=== PATIENT | female | born 1990 | race Caucasian/White ===

== ENCOUNTER 2021-07-29 12:08 | Inpatient (IN) | payer BC, SELFPAY ==
[2021-07-29] VITALS (44 sets, daily range): BP systolic 71–115; BP diastolic 34–65; PULSE 55–106; RESP 6–42; TEMP 36.9; O2SAT 93–100; BMI 11.2; BMI 25.0
[2021-07-29] MEDS: SODIUM CHLORIDE 0.9% 1,000 ML 1000 ML IV ×3 (12:38→16:26)
[2021-07-29] MEDS: ONDANSETRON 4 MG/2 ML INJ IV ×2 (12:38→14:23)
[2021-07-29 13:37] LABS: Ketones (Beta-Hydroxybutyrate) 4.49 mmol/L (<0.27)
[2021-07-29 13:38] LABS: BUN Creatinine Ratio 24.6 (6-22); Blood Urea Nitrogen 17 mg/dL (7-17); Calcium 9.2 mg/dL (8.4-10.2); Carbon Dioxide 16 mmol/L (22-32); Chloride 104 mmol/L (98-107); Estimated Glomerular Filt Rate > 60 mL/min (>60); Glucose 365 mg/dL (70-100); HEMOLYSIS < 15 (0-50); Potassium 4.6 mmol/L (3.4-5.1); Sodium 136 mmol/L (137-145)
[2021-07-29 14:06] LABS: Add Manual Diff / Slide Review NO; Basophils Absolute Auto 100 /uL (0-100); Basophils Percent Auto 0.8 % (0-2); Eosinophils Absolute Auto 0 /uL (0-450); Hematocrit 35.5 % (36-46); Hemoglobin 11.6 g/dL (12.0-16.0); Lymphocytes Absolute Auto 800 /uL (1100-4500); Lymphocytes Percent Auto 6.9 % (25-40); Mean Corpuscular HGB Conc 32.6 % (30-36); Mean Corpuscular Hemoglobin 27.9 PG (26-34); Mean Corpuscular Volume 85.5 fL (80-100); Monocytes Absolute Auto 300 /uL (0-900); Monocytes Percent Auto 2.5 % (3-14); Neutrophils Absolute Auto 10100 /uL (1500-7000); Neutrophils Percent Auto 89.8 % (50-75); Platelet Count 248 X10^3/uL (150-400); Red Blood Cell Count 4.15 X10^6/uL (4.0-5.2); Red Cell Distribution Width 13.9 % (11.6-14.8); White Blood Cell Count 11.3 X10^3/uL (4.5-11.0)
--- NOTE | 2021-07-29 14:22 | ED_ITS ---
HPI - General Adult General Chief complaint: Diabetic Problem Stated complaint: DIABETIC DKA Time Seen by Provider: 07/29/21 14:03 Source: patient Mode of arrival: Family Vehicle Limitations: no limitations History of Present Illness HPI narrative: Patient has type 1 diabetes. She uses insulin pump with sensor. She went biking for over 40 miles yesterday, she had no issues. She had a great time. She discovered her glucose sensor was not working. She dosed insulin to calories only. Today, Her ketones are high, probably related to exertion consistent with prior experiences with strenuous workouts. Today she developed nausea and vomiting. She has no diarrhea. She has significant abdominal cramping. She has no URI symptoms, no headache, no sore throat. She denies dysphagia. She has no chest discomfort she denies dyspnea. She has GI symptoms as noted above, she does not have chronic GI issues. She has urine output, no dysuria or hematuria. She has an IUD in place, menstrual cycles are regular. is unlikely. She has no extremity injuries, no cramping. Related Data Allergies Allergy/AdvReac Type Severity Reaction Status Date / Time amoxicillin Allergy ITCHING Verified 07/29/21 12:32 Review of Systems Constitutional Constitutional: Reports as per HPI, Reports body ache(s), Denies chills, Denies fever(s) and Denies headache(s) Eyes Eyes: Denies change in vision ENT Ears, Nose, Mouth, and Throat: Denies vertigo, Denies dizziness, Denies facial pain, Denies headache(s), Denies sinus pain, Denies sinus pressure and Denies sore throat Cardiovascular Cardiovascular: Denies chest pain, Denies syncope, Denies pedal edema, Denies palpitations and Denies dyspnea Respiratory Respiratory: Denies chest congestion, Denies cough and Denies dyspnea Gastrointestinal Gastrointestinal: Reports as per HPI Genitourinary Genitourinary: Reports as per HPI Musculoskeletal Musculoskeletal: Denies back pain, Reports myalgias and Denies numbness Integumentary/Breasts Skin/Breast: Denies rash and Denies skin pain Neurologic Neurologic: Denies vertigo, Denies dizziness, Denies syncope, Denies headache(s) and Denies numbness Psychiatric Psychiatric: Denies anxiety Endocrine Endocrine: Denies palpitations Hematologic/Lymphatic On Anticoagulants: No Patient History Medical History (Updated 07/29/21 @ 20:21 by Paramjit Mayen MD) DM type 1 (diabetes mellitus, type 1) Surgical History (Updated 07/29/21 @ 20:14 by Paramjit Mayen MD) No significant past surgical history Social History Smoking Status: Never smoker Smoking Status: Never smoker alcohol intake frequency: 0-2 drinks per day Substance Use Type: marijuana Exam Initial Vital Signs Initial Vital Signs: Vital Signs Pulse Rate 89 07/29/21 12:16 Blood Pressure 115/57 L 07/29/21 12:16 Pulse Oximetry 96 07/29/21 12:16 Const General: cooperative, healthy appearing, well developed and well groomed HENMT Head: normal to inspection, normocephalic and atraumatic Mouth: oropharynx normal and other (Dry oral mucosa.) Throat: posterior oropharynx normal Eyes General: Yes appearance normal, both eyes and all related structures Sclera: sclerae normal Pupils: PERRL EOM: EOM intact bilaterally Neck Neck: normal visual inspection, full ROM and No JVD Resp Auscultation: clear to auscultation bilaterally Cardio Rate: regular rate Rhythm: regular rhythm Heart Sounds: S1 normal, S2 normal, no gallops, no murmurs and no rubs GI Inspection: normal to inspection Palpation: soft and No tender Percussion: normal to percussion Auscultation: normal bowel sounds Back/Spine/Pelvis Back: No CVA tenderness Thoracic/Lumbar Spine: thoracic and lumbar spine normal to inspection Skin General: no rashes or lesions noted Neuro General: patient alert, patient awake, patient oriented x3 and no focal motor deficits Extrem General: normal to inspection, full ROM, no pedal edema and no calf tenderness Psych Mental Status: mental status grossly normal Course Course Course Narrative: Patient is normal blood pressure is 110-120. She presents with extended nausea vomiting. Initial blood pressure was 90s, she feels fatigued. She has been aggressively IV hydrated. Her glucose is were never dramatically high, and 300 range. Now however she has ketones and low CO2, suggesting DKA. VBG showed pH 7.245. After her initial glucose, the patient made an is some adjustment but to little effect. Labs repeated, it basically unchanged. She has now been hydrated over 2 L of normal saline, lab still consistent with DKA. Hospitalist, Dr. Rubin was consulted. The patient will be started on insulin drip, DKA protocol is initiated. The patient will DC monitoring and use of her insulin pump. Orders Ordered: ED Orders 07/29/21 12:25 CBC Auto Diff [Complete Blood Count AUTO DIFF] Stat Comprehensive Metabolic Panel Stat Ketones (Beta-Hydroxybutyrate) Stat Magnesium Stat Phosphorous Stat 07/29/21 13:49 Test Urine Stat 07/29/21 14:17 VBG [Venous Blood Gas] Stat 07/29/21 16:33 COVID19 -Nasal RAPID/Pre-Proc Stat Sodium Chloride (Normal Saline 0.9%) 1,000 mls @ 1,000 mls/hr IV BOLUS PRN PRN Reason: Fluid replacement Last Infusion: 07/29/21 18:22 Dose: 0 mls/hr Documented By: Admin: 07/29/21 16:26 Dose: 1,000 mls/hr Documented By: PATRICIA INSULIN DRIP PREMIX (Myxredlin Drip Premix) 100 unit in 100 mls @ 6 mls/hr IV TITRATE BETTY; Protocol Last Admin: 07/29/21 19:32 Dose: 6 mls/hr, 6 mls/hr Documented By: PATRICIA Co-signed By: JU Discontinued Medications Sodium Chloride (Normal Saline 0.9%) 1,000 mls @ 1,000 mls/hr IV BOLUS ONE Stop: 07/29/21 13:29 Last Infusion: 07/29/21 14:08 Dose: 0 mls/hr Documented By: Admin: 07/29/21 12:38 Dose: 1,000 mls/hr Documented By: JU Sodium Chloride (Normal Saline 0.9%) 1,000 mls @ 1,000 mls/hr IV BOLUS ONE Stop: 07/29/21 15:19 Last Infusion: 07/29/21 15:35 Dose: 0 mls/hr Documented By: Admin: 07/29/21 14:22 Dose: 1,000 mls/hr Documented By: JU Metoclopramide HCl (Metoclopramide 10 Mg/2 Ml Inj) 10 mg IV NOW ONE Stop: 07/29/21 16:15 Last Admin: 07/29/21 16:26 Dose: 10 mg Documented By: PATRICIA Ondansetron HCl (Ondansetron 4 Mg/2 Ml Inj) 4 mg IV NOW ONE Stop: 07/29/21 12:31 Last Admin: 07/29/21 12:38 Dose: 4 mg Documented By: JU Ondansetron HCl (Ondansetron 4 Mg/2 Ml Inj) 4 mg IV NOW ONE Stop: 07/29/21 14:21 Last Admin: 07/29/21 14:23 Dose: 4 mg Documented By: JU Ondansetron HCl (Ondansetron 4 Mg/2 Ml Inj) 4 mg IV NOW ONE Stop: 07/29/21 14:27 Last Admin: 07/29/21 14:31 Dose: Not Given Documented By: JU Vital Signs Vital signs: Vital Signs - 8 hr 07/29/21 12:16 07/29/21 12:16 07/29/21 12:30 Temperature Pulse Rate 89 Respiratory Rate Blood Pressure 115/57 L 104/57 L Pulse Oximetry 96 Oxygen Delivery Method 07/29/21 12:30 07/29/21 13:00 07/29/21 13:00 Temperature Pulse Rate 90 85 Respiratory Rate Blood Pressure 97/52 L Pulse Oximetry 98 100 Oxygen Delivery Method 07/29/21 12:20 07/29/21 13:30 07/29/21 13:37 Temperature 98.4 F Pulse Rate 88 94 H 93 H Respiratory Rate 19 Blood Pressure 115/57 L Pulse Oximetry 96 100 100 Oxygen Delivery Method Room Air 07/29/21 13:37 07/29/21 13:39 07/29/21 13:41 Temperature Pulse Rate Respiratory Rate Blood Pressure 96/46 L 105/53 L Pulse Oximetry 99 Oxygen Delivery Method 07/29/21 13:49 07/29/21 13:49 07/29/21 14:00 Temperature Pulse Rate 55 L Respiratory Rate Blood Pressure 106/54 L 94/48 L Pulse Oximetry Oxygen Delivery Method 07/29/21 14:00 07/29/21 14:30 07/29/21 14:30 Temperature Pulse Rate 90 89 Respiratory Rate Blood Pressure 101/53 L Pulse Oximetry 100 99 Oxygen Delivery Method 07/29/21 15:00 07/29/21 15:00 07/29/21 15:30 Temperature Pulse Rate 97 H Respiratory Rate Blood Pressure 95/53 L 88/48 L Pulse Oximetry 99 Oxygen Delivery Method 07/29/21 15:30 07/29/21 15:38 07/29/21 15:38 Temperature Pulse Rate 97 H 94 H Respiratory Rate Blood Pressure 80/39 L Pulse Oximetry 99 99 Oxygen Delivery Method 07/29/21 15:41 07/29/21 15:41 07/29/21 15:44 Temperature Pulse Rate 96 H 95 H Respiratory Rate Blood Pressure 73/36 L Pulse Oximetry 100 99 Oxygen Delivery Method 07/29/21 15:44 07/29/21 16:10 07/29/21 16:11 Temperature Pulse Rate 98 H Respiratory Rate Blood Pressure 90/46 L 82/44 L Pulse Oximetry 97 Oxygen Delivery Method 07/29/21 16:11 07/29/21 16:15 07/29/21 16:15 Temperature Pulse Rate 99 H 96 H Respiratory Rate Blood Pressure 96/48 L Pulse Oximetry 98 100 Oxygen Delivery Method 07/29/21 16:20 07/29/21 16:20 07/29/21 16:30 Temperature Pulse Rate 96 H Respiratory Rate 29 H Blood Pressure 99/48 L 83/39 L Pulse Oximetry 100 Oxygen Delivery Method 07/29/21 16:30 07/29/21 16:40 07/29/21 16:40 Temperature Pulse Rate 99 H 97 H Respiratory Rate 23 21 Blood Pressure 73/35 L Pulse Oximetry 100 100 Oxygen Delivery Method 07/29/21 16:50 07/29/21 16:50 07/29/21 17:00 Temperature Pulse Rate 97 H Respiratory Rate 26 H Blood Pressure 88/45 L 74/36 L Pulse Oximetry 100 Oxygen Delivery Method 07/29/21 17:00 Temperature Pulse Rate 95 H Respiratory Rate 22 Blood Pressure Pulse Oximetry 100 Oxygen Delivery Method Medical Decision Making Lab Data Result diagrams: 07/29/21 12:25 07/29/21 12:25 Labs: Lab Results 07/29/21 07/29/21 07/29/21 Range/Units 12:25 12:25 12:25 WBC 11.3 H (4.5-11.0) X10^3/uL RBC 4.15 (4.0-5.2) X10^6/uL Hgb 11.6 L (12.0-16.0) g/dL Hct 35.5 L (36-46) % MCV 85.5 (80-100) fL MCH 27.9 (26-34) PG MCHC 32.6 (30-36) % RDW 13.9 (11.6-14.8) % Plt Count 248 (150-400) X10^3/uL Neut % (Auto) 89.8 H (50-75) % Lymph % (Auto) 6.9 L (25-40) % [place] % (Auto) 2.5 L (3-14) % Eos % (Auto) 0.0 L (2-4) % Baso % (Auto) 0.8 (0-2) % Neut # (Auto) 11980 H (3250-9344) /uL Lymph # (Auto) 800 L (1560-6697) /uL [place] # (Auto) 300 (0-900) /uL Eos # (Auto) 0 (0-450) /uL Baso # (Auto) 100 (0-100) /uL VBG pH (7.33-7.43) VBG pCO2 (45-50) mmHg VBG pO2 (35-45) mmHg VBG HCO3 (23-28) mmol/L VBG Total CO2 (24-29) mmol/L VBG O2 Saturation (70-75) % VBG Base Excess (0-4) mmol/L Sodium 136 L (137-145) mmol/L Potassium 4.6 (3.4-5.1) mmol/L Chloride 104 (98-107) mmol/L Carbon Dioxide 16 L (22-32) mmol/L BUN 17 (7-17) mg/dL Creatinine 0.69 (0.52-1.04) mg/dL Estimated GFR > 60 (>60) mL/min BUN/Creatinine Ratio 24.6 H (6-22) Glucose 365 H (70-100) mg/dL Calcium 9.2 (8.4-10.2) mg/dL Phosphorus (2.5-4.5) mg/dL Magnesium (1.6-2.3) mg/dL Total Bilirubin 1.1 (0.2-1.3) mg/dL AST 44 H (14-36) IU/L ALT 25 (<35) IU/L Alkaline Phosphatase 120 (38-126) U/L Total Protein 7.5 (6.3-8.2) g/dL Albumin 4.6 (3.5-5.0) g/dL Globulin 2.9 (1.7-4.1) g/dL Albumin/Globulin Ratio 1.6 (1.0-2.8) Urine Test (Negative) Ketones 4.49 H (<0.27) mmol/L SARS-CoV-2 (PCR) (Negative) 07/29/21 07/29/21 07/29/21 Range/Units 12:25 13:49 14:17 WBC (4.5-11.0) X10^3/uL RBC (4.0-5.2) X10^6/uL Hgb (12.0-16.0) g/dL Hct (36-46) % MCV (80-100) fL MCH (26-34) PG MCHC (30-36) % RDW (11.6-14.8) % Plt Count (150-400) X10^3/uL Neut % (Auto) (50-75) % Lymph % (Auto) (25-40) % [place] % (Auto) (3-14) % Eos % (Auto) (2-4) % Baso % (Auto) (0-2) % Neut # (Auto) (3840-5224) /uL Lymph # (Auto) (2103-1304) /uL [place] # (Auto) (0-900) /uL Eos # (Auto) (0-450) /uL Baso # (Auto) (0-100) /uL VBG pH 7.25 L (7.33-7.43) VBG pCO2 41.3 L (45-50) mmHg VBG pO2 30 L (35-45) mmHg VBG HCO3 18 L (23-28) mmol/L VBG Total CO2 19 L (24-29) mmol/L VBG O2 Saturation 48 L (70-75) % VBG Base Excess -9.0 L (0-4) mmol/L Sodium (137-145) mmol/L Potassium (3.4-5.1) mmol/L Chloride (98-107) mmol/L Carbon Dioxide (22-32) mmol/L BUN (7-17) mg/dL Creatinine (0.52-1.04) mg/dL Estimated GFR (>60) mL/min BUN/Creatinine Ratio (6-22) Glucose (70-100) mg/dL Calcium (8.4-10.2) mg/dL Phosphorus 3.7 (2.5-4.5) mg/dL Magnesium 1.6 (1.6-2.3) mg/dL Total Bilirubin (0.2-1.3) mg/dL AST (14-36) IU/L ALT (<35) IU/L Alkaline Phosphatase (38-126) U/L Total Protein (6.3-8.2) g/dL Albumin (3.5-5.0) g/dL Globulin (1.7-4.1) g/dL Albumin/Globulin Ratio (1.0-2.8) Urine Test Negative (Negative) Ketones (<0.27) mmol/L SARS-CoV-2 (PCR) (Negative) 07/29/21 Range/Units 16:33 WBC (4.5-11.0) X10^3/uL RBC (4.0-5.2) X10^6/uL Hgb (12.0-16.0) g/dL Hct (36-46) % MCV (80-100) fL MCH (26-34) PG MCHC (30-36) % RDW (11.6-14.8) % Plt Count (150-400) X10^3/uL Neut % (Auto) (50-75) % Lymph % (Auto) (25-40) % [place] % (Auto) (3-14) % Eos % (Auto) (2-4) % Baso % (Auto) (0-2) % Neut # (Auto) (0875-9145) /uL Lymph # (Auto) (2798-5856) /uL [place] # (Auto) (0-900) /uL Eos # (Auto) (0-450) /uL Baso # (Auto) (0-100) /uL VBG pH (7.33-7.43) VBG pCO2 (45-50) mmHg VBG pO2 (35-45) mmHg VBG HCO3 (23-28) mmol/L VBG Total CO2 (24-29) mmol/L VBG O2 Saturation (70-75) % VBG Base Excess (0-4) mmol/L Sodium (137-145) mmol/L Potassium (3.4-5.1) mmol/L Chloride (98-107) mmol/L Carbon Dioxide (22-32) mmol/L BUN (7-17) mg/dL Creatinine (0.52-1.04) mg/dL Estimated GFR (>60) mL/min BUN/Creatinine Ratio (6-22) Glucose (70-100) mg/dL Calcium (8.4-10.2) mg/dL Phosphorus (2.5-4.5) mg/dL Magnesium (1.6-2.3) mg/dL Total Bilirubin (0.2-1.3) mg/dL AST (14-36) IU/L ALT (<35) IU/L Alkaline Phosphatase (38-126) U/L Total Protein (6.3-8.2) g/dL Albumin (3.5-5.0) g/dL Globulin (1.7-4.1) g/dL Albumin/Globulin Ratio (1.0-2.8) Urine Test (Negative) Ketones (<0.27) mmol/L SARS-CoV-2 (PCR) Negative (Negative) Point of Care Testing Glucose POC 323 Urine Dip Bedside Urine Glucose 1000 mg/dl Bedside Urine Bilirubin - Negative Bedside Urine Ketone +++ 80 Urine Specific [place] 1.025 Bedside Urine Occult Blood - Negative Bedside Urine pH 6.0 Bedside Urine Protein - Negative Bedside Urine Urobilinogen - Negative Bedside Urine Nitrite - Negative Bedside Urine Leukocytes - Negative Esterase Point of care testing: Point of Care Testing Glucose POC 323 Urine Dip Bedside Urine Glucose 1000 mg/dl Bedside Urine Bilirubin - Negative Bedside Urine Ketone +++ 80 Urine Specific [place] 1.025 Bedside Urine Occult Blood - Negative Bedside Urine pH 6.0 Bedside Urine Protein - Negative Bedside Urine Urobilinogen - Negative Bedside Urine Nitrite - Negative Bedside Urine Leukocytes - Negative Esterase Critical Care Time Critical Care Time Critical Care Time: Yes Total Critical Care Time: 40 Attestation: Time included initial patient assessment, as well as multiple reassessments. Patient was informed of the situation repeatedly. Care included consultation with the admitting physician. Discharge Plan Departure Patient Disposition: Admitted As Inpatient Clinical Impression: DKA (diabetic ketoacidosis), DM type 1 (diabetes mellitus, type 1) Admit Date/Time: 07/29/21 17:09 Admit Provider: Lew Rubin
[2021-07-29 14:39] LABS: HCO3 VBG 18 mmol/L (23-28); Oxygen Saturation VBG 48 % (70-75); PCO2 VBG 41.3 mmHg (45-50); PO2 VBG 30 mmHg (35-45); Total CO2 VBG 19 mmol/L (24-29)
[2021-07-29 14:40] LABS: pH VBG 7.25 (7.33-7.43)
[2021-07-29 15:19] LABS: Alanine Aminotransferase 25 IU/L (<35); Albumin 4.6 g/dL (3.5-5.0); Albumin Globulin Ratio 1.6 (1.0-2.8); Alkaline Phosphatase 120 U/L (38-126); Aspartate Aminotransferase 44 IU/L (14-36); Bilirubin Total 1.1 mg/dL (0.2-1.3); Globulin 2.9 g/dL (1.7-4.1); Magnesium 1.6 mg/dL (1.6-2.3); Phosphorous 3.7 mg/dL (2.5-4.5); Total Protein 7.5 g/dL (6.3-8.2)
[2021-07-29] MEDS: METOCLOPRAMIDE 10 MG/2 ML INJ IV (16:26)
[2021-07-29 16:36] LABS: Pregnancy Test Urine Negative (Negative)
[2021-07-29 17:18] LABS: COVID19 -Nasal RAPID Negative (Negative)
[2021-07-29] MEDS: INSULIN DRIP PREMIX 100 UNIT/100 ML PLAST..BAG 6 UNIT IV (19:32)
--- NOTE | 2021-07-29 20:21 | P.TELICUCN_ITS ---
History of Present Illness Consult details Chief complaint: DIABETIC DKA Narrative: Patient is a 31 year old female with history of DM on insulin pump who presents with N/V. Patient went out biking yesterday and noticed her insulin pump to be malfunction which she started dosing her insulin based on calorie counts. Today she developed abdominal pain and N/V. Associated lethargy, polyuria, and polydipsia. No reported fever/chills, chest pain, diarrhea, or dysuria. In ER, labs notable for glucose 360, Co2 16 and AG 16. She was resuscitated with 3 liters of crystalloids and started on insulin infusion. Admitted to ICU for DKA management. [facility] Medical History (Updated 07/29/21 @ 20:21 by Paramjit Mayen MD) DM type 1 (diabetes mellitus, type 1) Surgical History (Updated 07/29/21 @ 20:14 by Paramjit Mayen MD) No significant past surgical history Social History Smoking Status: Never smoker Current Medications Current Medications Medications: Visit Medications (administered) Generic Name Dose Route Start Last Admin Trade Name Freq PRN Reason Stop Dose Admin Sodium Chloride 1,000 mls @ 1,000 mls/hr 07/29/21 16:13 07/29/21 18:22 Normal Saline 0.9% IV Infused BOLUS PRN Infusion Fluid replacement INSULIN DRIP PREMIX 100 unit in 100 mls @ 6 mls/hr 07/29/21 19:00 07/29/21 19:32 Myxredlin Drip Premix IV 6 mls/hr TITRATE BETTY 6 mls/hr Administration Protocol Exam Vital Signs (past 8 hours): - 07/29/21 12:30 07/29/21 12:30 07/29/21 13:00 Pulse Rate 90 Respiratory Rate Blood Pressure 104/57 L 97/52 L Pulse Oximetry 98 07/29/21 13:00 07/29/21 13:30 07/29/21 13:37 Pulse Rate 85 94 H 93 H Respiratory Rate Blood Pressure Pulse Oximetry 100 100 100 07/29/21 13:37 07/29/21 13:39 07/29/21 13:41 Pulse Rate Respiratory Rate Blood Pressure 96/46 L 105/53 L Pulse Oximetry 99 07/29/21 13:49 07/29/21 13:49 07/29/21 14:00 Pulse Rate 55 L Respiratory Rate Blood Pressure 106/54 L 94/48 L Pulse Oximetry 07/29/21 14:00 07/29/21 14:30 07/29/21 14:30 Pulse Rate 90 89 Respiratory Rate Blood Pressure 101/53 L Pulse Oximetry 100 99 07/29/21 15:00 07/29/21 15:00 07/29/21 15:30 Pulse Rate 97 H Respiratory Rate Blood Pressure 95/53 L 88/48 L Pulse Oximetry 99 07/29/21 15:30 07/29/21 15:38 07/29/21 15:38 Pulse Rate 97 H 94 H Respiratory Rate Blood Pressure 80/39 L Pulse Oximetry 99 99 07/29/21 15:41 07/29/21 15:41 07/29/21 15:44 Pulse Rate 96 H 95 H Respiratory Rate Blood Pressure 73/36 L Pulse Oximetry 100 99 07/29/21 15:44 07/29/21 16:10 07/29/21 16:11 Pulse Rate 98 H Respiratory Rate Blood Pressure 90/46 L 82/44 L Pulse Oximetry 97 07/29/21 16:11 07/29/21 16:15 07/29/21 16:15 Pulse Rate 99 H 96 H Respiratory Rate Blood Pressure 96/48 L Pulse Oximetry 98 100 07/29/21 16:20 07/29/21 16:20 07/29/21 16:30 Pulse Rate 96 H Respiratory Rate 29 H Blood Pressure 99/48 L 83/39 L Pulse Oximetry 100 07/29/21 16:30 07/29/21 16:40 07/29/21 16:40 Pulse Rate 99 H 97 H Respiratory Rate 23 21 Blood Pressure 73/35 L Pulse Oximetry 100 100 07/29/21 16:50 07/29/21 16:50 07/29/21 17:00 Pulse Rate 97 H Respiratory Rate 26 H Blood Pressure 88/45 L 74/36 L Pulse Oximetry 100 07/29/21 17:00 07/29/21 17:10 07/29/21 17:10 Pulse Rate 95 H 97 H Respiratory Rate 22 28 H Blood Pressure 84/46 L Pulse Oximetry 100 100 07/29/21 17:20 07/29/21 17:20 07/29/21 17:30 Pulse Rate 104 H 96 H Respiratory Rate 30 H 22 Blood Pressure 96/54 L Pulse Oximetry 98 100 07/29/21 17:31 07/29/21 17:31 07/29/21 17:40 Pulse Rate 94 H 97 H Respiratory Rate 23 25 H Blood Pressure 79/37 L Pulse Oximetry 100 100 07/29/21 17:40 07/29/21 17:50 07/29/21 17:50 Pulse Rate 101 H Respiratory Rate Blood Pressure 71/34 L 91/44 L Pulse Oximetry 100 07/29/21 18:00 07/29/21 18:00 07/29/21 18:10 Pulse Rate 101 H Respiratory Rate Blood Pressure 93/44 L 90/45 L Pulse Oximetry 93 07/29/21 18:10 07/29/21 18:20 07/29/21 18:20 Pulse Rate 103 H 100 H Respiratory Rate 6 L 42 H Blood Pressure 77/41 L Pulse Oximetry 100 100 07/29/21 18:38 07/29/21 18:41 07/29/21 18:41 Pulse Rate 100 H 99 H Respiratory Rate Blood Pressure 95/44 L Pulse Oximetry 98 100 07/29/21 18:50 07/29/21 18:50 07/29/21 19:00 Pulse Rate 97 H Respiratory Rate 24 Blood Pressure 81/36 L 77/35 L Pulse Oximetry 100 07/29/21 19:00 07/29/21 19:10 07/29/21 19:10 Pulse Rate 98 H 100 H Respiratory Rate 25 H Blood Pressure 92/43 L Pulse Oximetry 100 100 07/29/21 19:20 07/29/21 19:20 Pulse Rate 100 H Respiratory Rate Blood Pressure 90/42 L Pulse Oximetry 100 Oxygen Delivery Method Room Air Objective Labs Result Diagrams: 07/29/21 12:25 07/29/21 12:25 Labs: Laboratory Results - last 24 hr 07/29/21 07/29/21 07/29/21 12:25 12:25 12:25 WBC 11.3 H RBC 4.15 Hgb 11.6 L Hct 35.5 L MCV 85.5 MCH 27.9 MCHC 32.6 RDW 13.9 Plt Count 248 Neut % (Auto) 89.8 H Lymph % (Auto) 6.[address] [place] % (Auto) 2.5 L Eos % (Auto) 0.0 L Baso % (Auto) 0.8 Neut # (Auto) 61770 H Lymph # (Auto) [address] [place] # (Auto) 300 Eos # (Auto) 0 Baso # (Auto) 100 VBG pH VBG pCO2 VBG pO2 VBG HCO3 VBG Total CO2 VBG O2 Saturation VBG Base Excess Sodium 136 L Potassium 4.6 Chloride 104 Carbon Dioxide 16 L BUN 17 Creatinine 0.69 Estimated GFR > 60 BUN/Creatinine Ratio 24.6 H Glucose 365 H Calcium 9.2 Phosphorus Magnesium Total Bilirubin 1.1 AST 44 H ALT 25 Alkaline Phosphatase 120 Total Protein 7.5 Albumin 4.6 Globulin 2.9 Albumin/Globulin Ratio 1.6 Urine Test Ketones 4.49 H SARS-CoV-2 (PCR) 07/29/21 07/29/21 07/29/21 12:25 13:49 14:17 WBC RBC Hgb Hct MCV MCH MCHC RDW Plt Count Neut % (Auto) Lymph % (Auto) [place] % (Auto) Eos % (Auto) Baso % (Auto) Neut # (Auto) Lymph # (Auto) [place] # (Auto) Eos # (Auto) Baso # (Auto) VBG pH 7.25 L VBG pCO2 41.3 L VBG pO2 30 L VBG HCO3 18 L VBG Total CO2 19 L VBG O2 Saturation 48 L VBG Base Excess -9.0 L Sodium Potassium Chloride Carbon Dioxide BUN Creatinine Estimated GFR BUN/Creatinine Ratio Glucose Calcium Phosphorus 3.7 Magnesium 1.6 Total Bilirubin AST ALT Alkaline Phosphatase Total Protein Albumin Globulin Albumin/Globulin Ratio Urine Test Negative Ketones SARS-CoV-2 (PCR) 07/29/21 16:33 WBC RBC Hgb Hct MCV MCH MCHC RDW Plt Count Neut % (Auto) Lymph % (Auto) [place] % (Auto) Eos % (Auto) Baso % (Auto) Neut # (Auto) Lymph # (Auto) [place] # (Auto) Eos # (Auto) Baso # (Auto) VBG pH VBG pCO2 VBG pO2 VBG HCO3 VBG Total CO2 VBG O2 Saturation VBG Base Excess Sodium Potassium Chloride Carbon Dioxide BUN Creatinine Estimated GFR BUN/Creatinine Ratio Glucose Calcium Phosphorus Magnesium Total Bilirubin AST ALT Alkaline Phosphatase Total Protein Albumin Globulin Albumin/Globulin Ratio Urine Test Ketones SARS-CoV-2 (PCR) Negative Assessment & Plan Assessment & Plan narrative: # DKA -- Secondary to malfunction insulin pump -- ICU admission, cardiac monitoring -- Optimize intravascular volume with IVF bolus -- Cont DKA protocol with insulin drip -- Check lipase -- Every hour Accu-Cheks, every 4 hour BMP, mag, phos -- Goal Magnesium >2, Phosphorus> 3, K>4 -- Will transition to sliding scale insulin when anion gap <12, CO2 > 17 # SIRS -- Secondary to DKA -- DKA rx as above # Sinus tachycardia -- Cont aggressive crystalloid resuscitation -- Monitor on telmetry -- High lytes goal # Hypotension -- Secondary to dehydration -- Cont IVF per DKA protocol -- MAP goal > 65 D/w RN and patient at bedside. Time Spent With Patient Critical Care time: I spent a total of [] minutes of critical care time on this patient's care today; this time is exclusive of procedural time.
--- NOTE | 2021-07-29 20:24 | PC.NURSE ---
insulin drip paused for transfer to ICU. report given on 6ml/hr total of 2ml given so far
[2021-07-29] MEDS: LACTATED RINGERS 1,000 ML 150 ML IV (20:59)
[2021-07-29 21:37] LABS: BUN Creatinine Ratio 25.8 (6-22); Blood Urea Nitrogen 25 mg/dL (7-17); Chloride 111 mmol/L (98-107); Estimated Glomerular Filt Rate > 60 mL/min (>60); Glucose 345 mg/dL (70-100); HEMOLYSIS < 15 (0-50); Potassium 4.7 mmol/L (3.4-5.1); Sodium 136 mmol/L (137-145)
[2021-07-29 21:51] LABS: Carbon Dioxide 7 mmol/L (22-32)
--- NOTE | 2021-07-29 22:14 | P.HP_ITS ---
History of Present Illness History of Present Illness Date Patient Seen: 07/29/21 Time Patient Seen: 21:45 Chief complaint: DIABETIC DKA Narrative: Elda Camara is a 31 y.o. female with diabetes type 1 using an insulin pump and was in her usual state of health when she changed out her pump cassette. She and her fiance were bicyling around [place] and after a 40-mile ride, she noticed her pump was not registering. She ascertained that the sensor was not working and started to administer her own insulin based on carb counts. She and her fiance were able to get [employer] lot laborer to drive them to the very terminal and they presented to the emergency department sometime today. Upon presentation to the ED her glucose was 365 and she had an anion gap of 16 and she was started on an insulin drip. She endorsed having nausea and vomiting, now very thirsty, denies headache, dizziness, difficulty swallowing, shortness of breath, chest pain, abdominal pain, dysuria, diarrhea or constipation, or upper or lower extremity neuropathy. She is afebrile, blood pressure 96/50, heart rate 102, respiratory rate 23, oxygen saturation of 99% on room air, she weighs 74.5 kg with a BMI of 25. WBC is mildly elevated at 11.3, her hemoglobin and hematocrit is 11.6 and 35.5 respectively, VBG pH 7.25, VBG pCO2 is 41.3, VBG PO2 is 30, VBG bicarb is 18, VBG total bicarb is 19, sodium 136, potassium 4.7 serum chloride 111 currently bicarb is 7 BUN 25 glucose 345 calcium 8.0 AST is 44, hemoglobin A1c is pending, urine is negative for , MRSA screen is negative ketones are present in her urine and COVID-19 PCR is negative. Patient History Medical History (Updated 07/29/21 @ 23:07 by KLEBER Prater) Anxiety DM type 1 (diabetes mellitus, type 1) Surgical History (Updated 07/29/21 @ 20:14 by Paramjit Mayen MD) No significant past surgical history Family & Social History Family History (Updated 07/30/21 @ 01:12 by KLEBER Prater) Father Pancreatic cancer Mother Glioblastoma Sister Celiac disease Safety & Behavioral: Feels Safe in Current Yes Environment Been Physically Hurt or No Threatened By a Person Tobacco & Substance use: Smoking Status Never smoker alcohol intake frequency 0-2 drinks per day Substance Use Type marijuana Meds Home Medications and Allergies Allergies Allergy/AdvReac Type Severity Reaction Status Date / Time amoxicillin Allergy ITCHING Verified 07/29/21 12:32 Exam Vital Signs (past 8 hours): - 07/29/21 14:30 07/29/21 14:30 07/29/21 15:00 Pulse Rate 89 Respiratory Rate Blood Pressure 101/53 L 95/53 L Pulse Oximetry 99 07/29/21 15:00 07/29/21 15:30 07/29/21 15:30 Pulse Rate 97 H 97 H Respiratory Rate Blood Pressure 88/48 L Pulse Oximetry 99 99 07/29/21 15:38 07/29/21 15:38 07/29/21 15:41 Pulse Rate 94 H 96 H Respiratory Rate Blood Pressure 80/39 L Pulse Oximetry 99 100 07/29/21 15:41 07/29/21 15:44 07/29/21 15:44 Pulse Rate 95 H Respiratory Rate Blood Pressure 73/36 L 90/46 L Pulse Oximetry 99 07/29/21 16:10 07/29/21 16:11 07/29/21 16:11 Pulse Rate 98 H 99 H Respiratory Rate Blood Pressure 82/44 L Pulse Oximetry 97 98 07/29/21 16:15 07/29/21 16:15 07/29/21 16:20 Pulse Rate 96 H Respiratory Rate Blood Pressure 96/48 L 99/48 L Pulse Oximetry 100 07/29/21 16:20 07/29/21 16:30 07/29/21 16:30 Pulse Rate 96 H 99 H Respiratory Rate 29 H 23 Blood Pressure 83/39 L Pulse Oximetry 100 100 07/29/21 16:40 07/29/21 16:40 07/29/21 16:50 Pulse Rate 97 H 97 H Respiratory Rate 21 26 H Blood Pressure 73/35 L Pulse Oximetry 100 100 07/29/21 16:50 07/29/21 17:00 07/29/21 17:00 Pulse Rate 95 H Respiratory Rate 22 Blood Pressure 88/45 L 74/36 L Pulse Oximetry 100 07/29/21 17:10 07/29/21 17:10 07/29/21 17:20 Pulse Rate 97 H 104 H Respiratory Rate 28 H 30 H Blood Pressure 84/46 L Pulse Oximetry 100 98 07/29/21 17:20 07/29/21 17:30 07/29/21 17:31 Pulse Rate 96 H Respiratory Rate 22 Blood Pressure 96/54 L 79/37 L Pulse Oximetry 100 07/29/21 17:31 07/29/21 17:40 07/29/21 17:40 Pulse Rate 94 H 97 H Respiratory Rate 23 25 H Blood Pressure 71/34 L Pulse Oximetry 100 100 07/29/21 17:50 07/29/21 17:50 07/29/21 18:00 Pulse Rate 101 H Respiratory Rate Blood Pressure 91/44 L 93/44 L Pulse Oximetry 100 07/29/21 18:00 07/29/21 18:10 07/29/21 18:10 Pulse Rate 101 H 103 H Respiratory Rate 6 L Blood Pressure 90/45 L Pulse Oximetry 93 100 07/29/21 18:20 07/29/21 18:20 07/29/21 18:38 Pulse Rate 100 H 100 H Respiratory Rate 42 H Blood Pressure 77/41 L Pulse Oximetry 100 98 07/29/21 18:41 07/29/21 18:41 07/29/21 18:50 Pulse Rate 99 H 97 H Respiratory Rate 24 Blood Pressure 95/44 L Pulse Oximetry 100 100 07/29/21 18:50 07/29/21 19:00 07/29/21 19:00 Pulse Rate 98 H Respiratory Rate 25 H Blood Pressure 81/36 L 77/35 L Pulse Oximetry 100 07/29/21 19:10 07/29/21 19:10 07/29/21 19:20 Pulse Rate 100 H 100 H Respiratory Rate Blood Pressure 92/43 L Pulse Oximetry 100 100 07/29/21 19:20 07/29/21 20:30 07/29/21 21:00 Pulse Rate 103 H Respiratory Rate 23 Blood Pressure 90/42 L 92/52 L Pulse Oximetry 100 07/29/21 21:00 07/29/21 22:00 07/29/21 22:00 Pulse Rate 106 H 106 H Respiratory Rate 28 H 29 H Blood Pressure 98/65 Pulse Oximetry 99 Oxygen Delivery Method Room Air Narrative Exam Narrative: Gen: Alert, oriented, well-developed 31 y.o. female, NAD HEENT: normocephalic, atraumatic, conjunctiva clear, sclera non-icteric, oral mucosa pink and moist Neck: supple, full ROM, no JVD, trachea is midline Resp: Lungs CTA, non-labored breathing CV: RRR, no murmur or rubs Abd: soft, non-tender, normoactive BTs Skin: no lesions or rashes, dry and intact Neuro: Alert and oriented X 4 w/no focal deficits. Speech clear and coherent. Extremities: moves all 4 extremities, is ambulatory, negative Latasha?s sign Psyche: normal mood and affect. Objective Labs Result Diagrams: 07/29/21 12:25 07/29/21 21:00 Labs: Laboratory Results - last 24 hr 07/29/21 07/29/21 07/29/21 12:25 12:25 12:25 WBC 11.3 H RBC 4.15 Hgb 11.6 L Hct 35.5 L MCV 85.5 MCH 27.9 MCHC 32.6 RDW 13.9 Plt Count 248 Neut % (Auto) 89.8 H Lymph % (Auto) 6.9 L [place] % (Auto) 2.5 L Eos % (Auto) 0.0 L Baso % (Auto) 0.8 Neut # (Auto) 01288 H Lymph # (Auto) 800 L [place] # (Auto) 300 Eos # (Auto) 0 Baso # (Auto) 100 VBG pH VBG pCO2 VBG pO2 VBG HCO3 VBG Total CO2 VBG O2 Saturation VBG Base Excess Sodium 136 L Potassium 4.6 Chloride 104 Carbon Dioxide 16 L BUN 17 Creatinine 0.69 Estimated GFR > 60 BUN/Creatinine Ratio 24.6 H Glucose 365 H Calcium 9.2 Phosphorus Magnesium Total Bilirubin 1.1 AST 44 H ALT 25 Alkaline Phosphatase 120 Total Protein 7.5 Albumin 4.6 Globulin 2.9 Albumin/Globulin Ratio 1.6 Urine Test Ketones 4.49 H SARS-CoV-2 (PCR) 07/29/21 07/29/21 07/29/21 12:25 13:49 14:17 WBC RBC Hgb Hct MCV MCH MCHC RDW Plt Count Neut % (Auto) Lymph % (Auto) [place] % (Auto) Eos % (Auto) Baso % (Auto) Neut # (Auto) Lymph # (Auto) [place] # (Auto) Eos # (Auto) Baso # (Auto) VBG pH 7.25 L VBG pCO2 41.3 L VBG pO2 30 L VBG HCO3 18 L VBG Total CO2 19 L VBG O2 Saturation 48 L VBG Base Excess -9.0 L Sodium Potassium Chloride Carbon Dioxide BUN Creatinine Estimated GFR BUN/Creatinine Ratio Glucose Calcium Phosphorus 3.7 Magnesium 1.6 Total Bilirubin AST ALT Alkaline Phosphatase Total Protein Albumin Globulin Albumin/Globulin Ratio Urine Test Negative Ketones SARS-CoV-2 (PCR) 07/29/21 07/29/21 16:33 21:00 WBC RBC Hgb Hct MCV MCH MCHC RDW Plt Count Neut % (Auto) Lymph % (Auto) [place] % (Auto) Eos % (Auto) Baso % (Auto) Neut # (Auto) Lymph # (Auto) [place] # (Auto) Eos # (Auto) Baso # (Auto) VBG pH VBG pCO2 VBG pO2 VBG HCO3 VBG Total CO2 VBG O2 Saturation VBG Base Excess Sodium 136 L Potassium 4.7 Chloride 111 H Carbon Dioxide 7 L* BUN 25 H Creatinine 0.97 Estimated GFR > 60 BUN/Creatinine Ratio 25.8 H Glucose 345 H Calcium 8.0 L Phosphorus Magnesium Total Bilirubin AST ALT Alkaline Phosphatase Total Protein Albumin Globulin Albumin/Globulin Ratio Urine Test Ketones SARS-CoV-2 (PCR) Negative Assessment & Plan Assessment & Plan narrative: Elda Camara will be admitted to the ICU for further management of a borderline DKA and will remain on an insulin drip that was started in the ED. Borderline DKA, acute and present on admission * Initial anion gap is 16 * BMP q 4 hours * DKA protocol adjustments in insulin drip * NPO, advance as tolerated Anxiety * Continue home dose of lexapro 20 mg po daily VTE Prophylaxis: Wells risk score 1.5 X Enoxaparin 40 mg subQ once daily Bilateral SCDs Patient is admitted to the inpatient service due to the severity of disease, risks of further disease progression and this stay is expected to exceed 2 midnights. FEN: IV fluids: insulin drip, diet: NPO, advance as tolerated, labs: CBC, C/BMP, liver enzymes, Mag, PT/INR Consultants: Intercept ICU Dispo: eventual d/c to home Code status: full code as discussed with the patient who identifies her Dario hay her surrogate and POA. [X] I have utilized all available immediate resources to obtain, update, or review of the patient's current medications COVID-19 COVID-19 status: Negative Result date/Date tested (Pos, Neg/Pending): 07/30/21 Scores Wells' Criteria for PE Clinical signs and symptoms of DVT: No PE is #1 Dx or equally likely: No Heart rate > 100: Yes Immobilization at least 3 days or surg in previous 4 weeks: No History of PE or DVT: No Hemoptysis: No Malignancy w/Treatment within 6 months or palliative: No Wells' PE Score total: 1.5 Quality VTE Deep Vein Thrombosis/Pulmonary Embolism Present on Admission: No MIPS - Admit I confirm the patient?s Advance Care Plan is present, Code status is documented, Surrogate decision maker is in patient?s record [If Yes, STOP here]: Yes MIPS - DC The patient has current or prior documentation of left ventricular ejection fraction (LVEF) less than 40%, or moderate or severely depressed left ventricu lar systolic function.: No
[2021-07-29] MEDS: DEXTROSE 5%-LACTATED RINGERS 1,000 ML 150 ML IV (23:32)
[2021-07-29 23:36] LABS: Hemoglobin A1C% w Est Avg Glu 6.7 % (4.0-6.0)
[2021-07-29 23:59] LABS: Lipase 91 U/L (23-300)
[2021-07-30] VITALS (16 sets, daily range): BP systolic 74–102; BP diastolic 46–56; PULSE 67–99; RESP 15–30; TEMP 37.4; O2SAT 100
[2021-07-30 01:57] LABS: BUN Creatinine Ratio 27.5 (6-22); Blood Urea Nitrogen 22 mg/dL (7-17); Calcium 8.2 mg/dL (8.4-10.2); Carbon Dioxide 16 mmol/L (22-32); Chloride 111 mmol/L (98-107); Estimated Glomerular Filt Rate > 60 mL/min (>60); Glucose 158 mg/dL (70-100); HEMOLYSIS < 15 (0-50); Potassium 3.7 mmol/L (3.4-5.1); Sodium 136 mmol/L (137-145)
[2021-07-30] MEDS: POTASSIUM CHLORIDE IN WATER 10 MEQ/100 ML PIGGYBACK 100 MEQ IV ×2 (02:25→03:32)
[2021-07-30] MEDS: POTASSIUM CHLORIDE IN WATER 10 MEQ/100 ML PIGGYBACK 75 MEQ IV ×2 (04:44→06:10)
[2021-07-30 05:23] LABS: Add Manual Diff / Slide Review NO; Basophils Absolute Auto 0 /uL (0-100); Basophils Percent Auto 0.1 % (0-2); Eosinophils Absolute Auto 0 /uL (0-450); Hematocrit 27.2 % (36-46); Hemoglobin 9.1 g/dL (12.0-16.0); Lymphocytes Absolute Auto 1100 /uL (1100-4500); Lymphocytes Percent Auto 7.3 % (25-40); Mean Corpuscular HGB Conc 33.6 % (30-36); Mean Corpuscular Volume 83.4 fL (80-100); Monocytes Absolute Auto 1400 /uL (0-900); Monocytes Percent Auto 9.4 % (3-14); Neutrophils Absolute Auto 12600 /uL (1500-7000); Neutrophils Percent Auto 83.2 % (50-75); Platelet Count 203 X10^3/uL (150-400); Red Blood Cell Count 3.26 X10^6/uL (4.0-5.2); Red Cell Distribution Width 13.9 % (11.6-14.8); White Blood Cell Count 15.1 X10^3/uL (4.5-11.0)
[2021-07-30] MEDS: DEXTROSE 5%-LACTATED RINGERS 1,000 ML 150 ML IV (05:46)
--- NOTE | 2021-07-30 06:40 | PC.NURSE ---
Food Production Worker Note-Patient admitted to ICU room 226 at 2014, weak and fatigued but oriented x4, fiance at bedside. Insulin gtt titrated per protocol, see flow sheet. LR at 150ml/hr initially, then changed to D5LR at 150ml/hr per order by Dr Allen who saw patient via Tele camera. K+ riders started per protocol. HR SR/ST, BP low but stable, see vital trends. Tolerated ice and water without N/V.
[2021-07-30 07:33] LABS: Blood Urea Nitrogen 18 mg/dL (7-17); Calcium 8.1 mg/dL (8.4-10.2); Carbon Dioxide 20 mmol/L (22-32); Chloride 110 mmol/L (98-107); Estimated Glomerular Filt Rate > 60 mL/min (>60); Glucose 143 mg/dL (70-100); HEMOLYSIS < 15 (0-50); Potassium 4.5 mmol/L (3.4-5.1); Sodium 135 mmol/L (137-145)
--- NOTE | 2021-07-30 09:18 | PC.NURSE ---
0905- Hospitalist rounded. Reported calculated anion gap, labs, VS, BG 90. Instruction received to stop insulin gtt and advance diet as tolerated. Hospitalist states as long as pt tolerating PO, no need to infuse D10. Plan is to give glargine and monitor BGs. If pt able to take PO and maintain glucose within stable parameters, pt may dc home.
[2021-07-30] MEDS: INSULIN GLARGINE 100 UNIT/ML 3ML PEN 12 UNIT SUBCUT (09:43)
--- NOTE | 2021-07-30 12:49 | PC.NURSE ---
Pt dc'd to home per MD order. Provided dc packet and educational materials to pt. Reviewed dx, meds, insulin needs, diabetic education. Pt verbalizes understanding. BG 231. Pt states she plans to put insulin pump on to deliver bolus dosing PRN -hyperglycemia upon discharge from hospital and will institute continuous dosing after glargine wears off. Removed PIV and monitoring equipment. Pt dressed herself and gathered all belongings. Pt was escorted to exit by NEUROCRITICAL CARE PHYSICIAN in no distress at 1230.
--- NOTE | 2021-07-30 21:07 | PM.DS.1 ---
History of Present Illness History of Present Illness Date Patient Seen: 07/29/21 Time Patient Seen: 21:45 Chief complaint: DIABETIC DKA Narrative: Per admitting provider: Elda Camara is a 31 y.o. female with diabetes type 1 using an insulin pump and was in her usual state of health when she changed out her pump cassette. She and her fiance were bicyling around [place] and after a 40-mile ride, she noticed her pump was not registering. She ascertained that the sensor was not working and started to administer her own insulin based on carb counts. She and her fiance were able to get [email or web address] technician parking to drive them to the very terminal and they presented to the emergency department sometime today. Upon presentation to the ED her glucose was 365 and she had an anion gap of 16 and she was started on an insulin drip. She endorsed having nausea and vomiting, now very thirsty, denies headache, dizziness, difficulty swallowing, shortness of breath, chest pain, abdominal pain, dysuria, diarrhea or constipation, or upper or lower extremity neuropathy. She is afebrile, blood pressure 96/50, heart rate 102, respiratory rate 23, oxygen saturation of 99% on room air, she weighs 74.5 kg with a BMI of 25. WBC is mildly elevated at 11.3, her hemoglobin and hematocrit is 11.6 and 35.5 respectively, VBG pH 7.25, VBG pCO2 is 41.3, VBG PO2 is 30, VBG bicarb is 18, VBG total bicarb is 19, sodium 136, potassium 4.7 serum chloride 111 currently bicarb is 7 BUN 25 glucose 345 calcium 8.0 AST is 44, hemoglobin A1c is pending, urine is negative for , MRSA screen is negative ketones are present in her urine and COVID-19 PCR is negative. Discharge Providers Provider Date of admission: 07/29/21 17:09 Discharge Date: 07/30/21 Consults: 07/29/21 20:34 Consult to Tele-injection molding machine setter Routine Comment: Consulting Provider: J[employer] Reason for consultation: Lead Software Test Engineer services Has provider been notified: Yes Discharge provider: Lew Rubin MD Summary Hospital Course Discharge Diagnosis: 1. DKA, Type 1 Diabetes Hospital Course: Ms. Camara was admitted after a malfunction of her insulin pump. She then developed DKA. She was given IV fluids and started in an insulin drip. She felt improved. Her insulin pump was corrected. A1c was in the 6s. She was able to be discharged home. Exam Vital Signs (past 8 hours): Oxygen Delivery Method Room Air Narrative Exam Narrative: GEN: no acute distress CV: regular rate and rhythm PULM: clear bilaterally ABD: soft, nontender, nondistended Objective Labs Result Diagrams: 07/30/21 04:35 07/30/21 07:09 Labs: Laboratory Results - last 24 hr 07/29/21 07/29/21 07/29/21 12:25 20:15 21:00 WBC RBC Hgb Hct MCV MCH MCHC RDW Plt Count Neut % (Auto) Lymph % (Auto) [place] % (Auto) Eos % (Auto) Baso % (Auto) Neut # (Auto) Lymph # (Auto) [place] # (Auto) Eos # (Auto) Baso # (Auto) Sodium Potassium Chloride Carbon Dioxide BUN Creatinine Estimated GFR BUN/Creatinine Ratio Glucose Hemoglobin A1c 6.7 H Calcium Lipase 91 Nasal Screen MRSA (PCR) Negative for mrsa 07/29/21 07/30/21 07/30/21 21:00 01:35 04:35 WBC 15.1 H RBC 3.26 L Hgb 9.1 L Hct 27.2 L MCV 83.4 MCH 28.0 MCHC 33.6 RDW 13.9 Plt Count 203 Neut % (Auto) 83.2 H Lymph % (Auto) 7.3 L [place] % (Auto) 9.4 Eos % (Auto) 0.0 L Baso % (Auto) 0.1 Neut # (Auto) 07239 H Lymph # (Auto) 1100 [place] # (Auto) 1400 H Eos # (Auto) 0 Baso # (Auto) 0 Sodium 136 L 136 L Potassium 4.7 3.7 Chloride 111 H 111 H Carbon Dioxide 7 L* 16 L BUN 25 H 22 H Creatinine 0.97 0.80 Estimated GFR > 60 > 60 BUN/Creatinine Ratio 25.8 H 27.5 H Glucose 345 H 158 H D Hemoglobin A1c Calcium 8.0 L 8.2 L Lipase Nasal Screen MRSA (PCR) 07/30/21 07:09 WBC RBC Hgb Hct MCV MCH MCHC RDW Plt Count Neut % (Auto) Lymph % (Auto) [place] % (Auto) Eos % (Auto) Baso % (Auto) Neut # (Auto) Lymph # (Auto) [place] # (Auto) Eos # (Auto) Baso # (Auto) Sodium 135 L Potassium 4.5 Chloride 110 H Carbon Dioxide 20 L BUN 18 H Creatinine 0.75 Estimated GFR > 60 BUN/Creatinine Ratio 24.0 H Glucose 143 H Hemoglobin A1c Calcium 8.1 L Lipase Nasal Screen MRSA (PCR) [facility] Medical History (Updated 07/29/21 @ 23:07 by KLEBER Prater) Anxiety DM type 1 (diabetes mellitus, type 1) Surgical History (Updated 07/29/21 @ 20:14 by Paramjit Mayen MD) No significant past surgical history Family History (Updated 07/30/21 @ 01:12 by KLEBER Prater) Father Pancreatic cancer Mother Glioblastoma Sister Celiac disease Social History household members: significant other Smoking Status: Never smoker Discharge Plan Discharge Plan Patient Disposition: Home Provider Discharge Comment: Ms. Camara came in to the hospital due to DKA. This occurred due to malfunctioning insulin pump, which was fixed. She was briefly on an insulin drip but quickly improved and was able to be discharged. Discharge orders & Medications Prescriptions: Continued Baqsimi 3 mg/actuation spray,non-aerosol 1 INTRANASAL PRN (Reason: Hypoglycemia) Label Comments: ADMINISTER ONE SPRAY INTO ONE NOSTRIL ONE TIME NEEDED FOR LOW ... (REFER TO PRESCRIPTION NOTES). Diet/Activity/Treatments Diet: Carb-consistent/Diabetic Visit Report/Discharge Packet Instructions: DI for Diabetes Type 1 -- Adult, DI for Diabetic Ketoacidosis Quality VTE Deep Vein Thrombosis/Pulmonary Embolism Present on Admission: No
== END 2021-07-30 12:30 | disposition home or self-care (01) | DRG 919 ==
LOC: ED 14:03 → AC 17:09 → ICU 20:19
PROVIDERS: Internal Medicine Pulmonary Disease; Nurse Practitioner Family; Admitting Provider Internal Medicine; Emergency Provider Emergency Medicine; Referring Provider Emergency Medicine; Visit Provider Internal Medicine
DX: T85.694A Other mechanical complication of insulin pump, initial encounter (principal); E10.10 Type 1 diabetes mellitus with ketoacidosis without coma; R65.10 Systemic inflammatory response syndrome (SIRS) of non-infectious origin without acute organ dysfunction; I95.9 Hypotension, unspecified; E86.0 Dehydration; T38.3X6A Underdosing of insulin and oral hypoglycemic [antidiabetic] drugs, initial encounter; F41.9 Anxiety disorder, unspecified; Z20.822 Contact with and (suspected) exposure to COVID-19
CPT/HCPCS: 36415; 80048; 80053; 81003; 81025; 82009; 82805; 82962; 83036; 83690; 83735; 84100; 85025; 87635; 87797; 96361; 96365; 96375; 96376; 99284; 99291; C9803; J2405; J2765; J7121